=== PATIENT | female | born 1975 | race Two or more races ===

== ENCOUNTER 2020-07-22 21:41 | Emergency (ER) | payer MEDICAID, OTHER ==
[2020-07-23 02:11] VITALS: BP 153/91
== END 2020-07-23 02:18 | disposition home or self-care (01) ==
LOC: EDBD 21:41 → ER 21:45
DX: S13.9XXA Sprain of joints and ligaments of unspecified parts of neck, initial encounter (principal); M62.830 Muscle spasm of back; V49.9XXA Car occupant (driver) (passenger) injured in unspecified traffic accident, initial encounter; Y93.89 Activity, other specified; Y92.89 Other specified places as the place of occurrence of the external cause; Y99.8 Other external cause status
CPT/HCPCS: 70450; 72125